=== PATIENT | male | born 1955 | race Caucasian/White ===

== ENCOUNTER 2020-12-28 22:54 | Emergency (ER) | payer OTHER, MEDICARE ==
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
== END 2020-12-29 00:10 | disposition home or self-care (01) ==
LOC: LB.ED 22:54
DX: S00.81XA Abrasion of other part of head, initial encounter (principal); Z87.891 Personal history of nicotine dependence; V49.10XA Passenger injured in collision with unspecified motor vehicles in nontraffic accident, initial encounter; Y92.410 Unspecified street and highway as the place of occurrence of the external cause
CPT/HCPCS: 36415; 70450; 80053; 80307; 85025; 85610; 99284-25; A0425; A0429